=== PATIENT | female | born 1955 | race Caucasian/White ===

== ENCOUNTER 2022-05-23 19:29 | Emergency (ER) | payer BC, OTHER, SELFPAY ==
[2022-05-23 19:30] VITALS: BP 145/79; PULSE 101; RESP 16; TEMP 36.2; O2SAT 95; BMI 30.7
--- NOTE | 2022-05-23 19:33 | RAD_ITS ---
EXAM: XR RIGHT SHOULDER COMPLETE, 2 OR MORE VIEWS CLINICAL INDICATION: FALL TECHNIQUE: Two or more views of the right shoulder. This report was created using Lala report generation technology. COMPARISON: None. FINDINGS: Acute fracture centered at the surgical neck of the right proximal humerus. At least moderate hypertrophic degenerative changes involving the right acromioclavicular joint. Degenerative changes of the spine. Soft tissues swelling about the fracture site. RAD/Shoulder min 2 Views IMPRESSION: Acute fracture centered at the surgical neck of the right proximal humerus. Electronically Signed: Raz Quijano MD at 20:37 EDT ,
--- NOTE | 2022-05-23 21:24 | EDS_ITS ---
HPI History of Present Illness Chief Complaint: Fall Informant: patient Narrative Narrative: 66-year-old female was learning how to walk a large great Todd when a neighbor came out of their house with a smaller dog and the great Todd that pulled her forward and she was unable to get her hand out of the leash and she fell down injuring her right shoulder. She notes bruising to the dorsum of the right hand but no painful or limited range of motion at that location. She notes pain and crunching when she attempts to move the right shoulder. PFSH PFSH Home Medications Cetirizine Hcl [Zyrtec] 10 mg PO DAILY 11/28/16 [History Last Taken Unknown] bupropion HCl 300 mg 24 hr tablet, extended release 300 mg PO DAILY 11/28/16 [History Last Taken Unknown] cyclobenzaprine 10 mg tablet 10 mg PO TID PRN PRN MUSCLE SPASMS 11/28/16 [History Last Taken Unknown] diclofenac sodium 75 mg tablet,delayed release 75 mg PO BIDCM 11/28/16 [History Last Taken Unknown] fluticasone propionate 50 mcg/actuation nasal spray,suspension 1 spray DAILY 11/28/16 [History Last Taken Unknown] hydrochlorothiazide 12.5 mg capsule 12.5 mg PO DAILY 11/28/16 [History Last Taken Unknown] lorazepam 1 mg tablet 1 mg PO BID PRN PRN Anxiety 11/28/16 [History Last Taken Unknown] metformin 500 mg tablet 2,000 mg PO DINNER 11/28/16 [History Last Taken Unknown] montelukast 10 mg tablet 10 mg PO DAILY 11/28/16 [History Last Taken Unknown] pantoprazole 40 mg tablet,delayed release 40 mg PO DAILY 11/28/16 [History Last Taken Unknown] simvastatin 40 mg tablet 40 mg PO QHS 11/28/16 [History Last Taken Unknown] sumatriptan succinate 100 mg tablet (Imitrex) 200 mg PO .X1 PRN PRN MIGRAINES 11/28/16 [History Last Taken Unknown] oxycodone-acetaminophen 5 mg-325 mg tablet 1 tab PO Q6H PRN PRN pain 5 days #20 TABLETS 05/23/22 [Rx Last Taken Unknown] Allergy/AdvReac Type Severity Reaction Status Date / Time lisinopril Allergy COUGH Verified 05/23/22 19:31 losartan Allergy Unknown Verified 05/23/22 19:31 Penicillins Allergy Swelling Verified 05/23/22 19:31 sertraline [From Zoloft] Allergy JITTERY Verified 05/23/22 19:31 Sulfa (Sulfonamide Allergy Anaphylaxis Verified 05/23/22 19:31 Antibiotics) Social History (Updated 05/23/22 @ 21:[address] Sekou Paz, DO) current gender identity: female Smoking Status: Never smoker substance use type: does not use ROS ROS ED Constitutional Constitutional ED: Denies chills or weight loss Eyes Eyes: Denies change in vision or diplopia ENT ENT ED: Denies ear pain, rhinorrhea or sore throat Cardiovascular Cardiovascular: Denies chest pain, orthopnea, palpitations or racing heartbeat Respiratory/Chest Respiratory/Chest: Denies cough, dyspnea or orthopnea Gastrointestinal Gastrointestinal: Denies abdominal pain, diarrhea, nausea or vomiting Genitourinary Genitourinary ED: Denies dysuria, hematuria or urinary frequency Musculoskeletal Musculoskeletal: Reports other Details: See history of present illness ; Denies arthralgias or myalgias Integumentary Denies abscess or rash Neurologic Neurologic: Denies headache(s) or weakness Psychiatric Psychiatric: Denies anxiety, depression, suicidal ideation or suicidal thoughts Endocrine Endocrinology: Denies polydipsia, polyphagia or polyuria Allergic/Immunologic Allergic/Immunologic ED: Denies mouth swelling, tongue swelling or urticaria EXAM Physical Exam Const Vital Signs: 05/23/22 19:30 05/23/22 20:05 Temperature 97.2 F L Temperature Source Temporal Pulse Rate 101 H Respiratory Rate 16 Respiratory Effort Normal Non-Labored Respiratory Depth Normal Respiratory Pattern Normal Blood Pressure 145/79 H Blood Pressure Mean 101 Pulse Ox 95 Oxygen Delivery Method Room Air Room Air Positive well nourished and well developed General Appearance ED: well developed HEENT Reports normocephalic, head/scalp atraumatic and moist mucous membranes Eyes PERRL and EOMs intact bilaterally Neck no lymphadenopathy, supple and no JVD Resp normal respiratory effort and clear to auscultation bilaterally Cardio regular rate, regular rhythm and no murmurs GI normal to inspection, nondistended, normoactive bowel sounds and non-tender Palpation: soft Back/Spine no CVA tenderness and normal ROM Extremity Extremity Narrative: Patient has tenderness to palpation limited range of motion at the right shoulder. Neurovascular she is intact distal. There is some slight ecchymosis without deformity or bony tenderness along the fifth metacarpal of the right hand. No malrotation. General Extremety ED: Negative for edema General Extremity: Negative for edema Neuro oriented x3 and CN's II-XII intact bilaterally Sensorium / Orientation: alert Motor Exam: strength 5/5 throughout Psych mental status grossly normal Mood & Affect: Negative for depressed or tearful Skin no rashes or lesions noted and no wounds MDM MDM MDM Narrative Medical decision making narrative: X-rays of the shoulder obtained which demonstrates a fracture through the surgical neck. Patient will be placed in a sling given pain medication. She is to follow-up with orthopedics. Radiography Diagnostic Testing: Clinical Impression(s) from Imaging Studies Shoulder X-Ray 05/23/22 19:33 IMPRESSION: Acute fracture centered at the surgical neck of the right proximal humerus. Electronically Signed: Raz Quijano MD at 20:37 EDT Reading Location ID and State: [facility] / [place] Tel , Service support , Discharge Plan Triage Chief Complaint: Fall ED Provider: Sekou Paz Dx/Rx/DC Orders Clinical Impression: Closed fracture of proximal end of right humerus Instructions: ED Fracture, Shoulder Prescriptions: New oxycodone-acetaminophen [oxycodone-acetaminophen] 5-325 mg tablet 1 tab PO Q6H PRN PRN (Reason: pain) 5 Days Qty: 20 0RF No Action cyclobenzaprine 10 MG tablet 10 mg PO TID PRN PRN (Reason: MUSCLE SPASMS) metformin 500 MG tablet 2,000 mg PO DINNER simvastatin 40 MG tablet 40 mg PO QHS hydrochlorothiazide 12.5 MG capsule 12.5 mg PO DAILY diclofenac sodium 75 MG tablet 75 mg PO BIDCM montelukast 10 MG tablet 10 mg PO DAILY lorazepam 1 MG tablet 1 mg PO BID PRN PRN (Reason: Anxiety) fluticasone propionate 1 SPRAY spray,suspension 1 spray NASAL DAILY Cetirizine Hcl [Zyrtec] 10 MG tablet 10 mg PO DAILY pantoprazole 40 MG tablet 40 mg PO DAILY bupropion HCl 300 MG tablet extended release 24 hr 300 mg PO DAILY sumatriptan succinate [Imitrex] 100 MG tablet 200 mg PO .X1 PRN PRN (Reason: MIGRAINES) Primary Care Provider: Nitesh Alba Referrals: Robert Cristina DO [STAFF PHYSICIAN] - As soon as possible Nitesh Alba MD [Primary Care Provider] - Activity Restrictions/Additional Instructions: I would hold your tramadol if you are going to be using the Percocet. You can use 1 or the other but not both. Disposition Disposition: Home, Self Care
[2022-05-23] MEDS: oxyCODONE 5 MG Tablet 10 MG PO (21:40)
== END 2022-05-23 21:52 | disposition home or self-care (01) ==
PROVIDERS: Emergency Provider Emergency Medicine; PCP Family Medicine; Visit Provider Emergency Medicine
DX: S42.201A Unspecified fracture of upper end of right humerus, initial encounter for closed fracture (principal); W19.XXXA Unspecified fall, initial encounter
CPT/HCPCS: 73030; 99283

== ENCOUNTER 2022-08-23 15:00 | Outpatient (RCR) | payer MEDICARE, OTHER, SELFPAY ==
--- NOTE | 2022-06-21 11:52 | HP.PTEVAL_ITS ---
Patient's Visit Information VIGNESH JIMENES is a 67 year old F referred to Physical Therapy by ALLAN HAYNES with a diagnosis of 3 part fracture r humeral neck.. Date of Evaluation: 06/21/22 Physical Therapist: MULU BuschT, OCS, CSCS - Visit Plan Frequency: 3x /Week Duration: 4-6 Weeks Plan: 3x/week for 6 weeks for... 1. start MH, STM to R shoulder and upper arm and PROM R shoulder(script limited to PROM right now. for first two weeks.). when allowed by doctor(2 weeks...8/5?) progress to AAROM, AROM and strengthening/RTF. - Subjective I fractured ball of my r humerus/shoulder on May 23 from walking a great rajinder mastiff pulling on her arm and making her fall.. Put in a sling at ER for 6-8 weeks and sent to surgeon. Has FM and that seems flared up. Ortho took x rays and says she is healing but only part way. Needs to start therapy to get it moving. Could not use hand until a week ago. She asked patient to use hand and do pendulum. Pain is 10 or 11 at times, worse upon waking. Sleeps in recliner adn it is challenging but getting some FM pain all over and R shoulder and hand and neck. At rest is 3/10, one day was 0/10. Employed but is off b/c of shoulder. 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 Hobbies: helps with sister with brain tumor. ADLS: Dress self but gets stuck in dresses. Bathroom and shower alone, lives alone. - Pain R shoulder Pain Intensity (Out of 10): 3 Pain Intensity Range: 0, 10 - Objective Walks into PT I and trasnfers I, Has sling loosely on R shoulder and dons and d offs I. Cervical aROM WFL. R elbow AROM ext -20 degrees and flexion is full, both are slow, some bruising above R elbow still apparent. wrist adn hand AROM B WFL, some pain with elevating R thumb. L shoulder AROM WFL to 135 degrees, stiff. R shoulder PROM 110 flexion, 90 abduction, 30 ext rotation and 30 IR, all slow and limited by pain,. AROM not taken today due to limitations on script. Strength R shoulder not tested today, L shoulder 4-/5, B elbow 4-/5, wrist 4/5 B. AROM ext rotation R shoulder challenging and resisted at about 3/5 vs 4 on L. IR 3+ R adn 4 L. - Balance/Special Test Scores Quick DASH Score: 84.0900 - Goals Goal 1:: ST: pt have PROM R shouldr 135 flexiona dn abd nad 60 ext rotation and 60 IR in two weeks Goal Time Frame: 2 Weeks Goal 2:: LT : PT reach OH to do hair without pain or hesitation Goal Time Frame: 4-6 Weeks Goal 3:: Pt sleep without waking at night due to pain Goal Time Frame: 4-6 Weeks Goal 4:: Have plan to return to work Goal Time Frame: 4-6 Weeks Goal 5:: Pt feel 75% better in function of R UE Goal Time Frame: 4-6 Weeks - Rehabilitation Potential Physical Therapy Diagnosis: Fracture R shoulder limiting ROM and function Rehabilitation Potential: Fair - Anticipated Interventions Patient/Client Instruction: Educate patient on: Condition, Plan of Care For the Purpose of:: To decrease pain, To increase ROM, To improve muscle performance and motor function, To increase tolerance to activity/condition/position Therapeutic Exercise to Include: Postural training, Flexibilty training, Passive ROM For the Purpose of:: To increase ROM, To improve nutrient delivery to tissue, To improve muscle performance and motor function, To increase tolerance to activity/condition/position Manual Therapy Techniques to Include: Passive ROM, Soft tissue mobilization For the Purpose of:: To increase ROM Thermo therapy (hot pack): Yes For the Purpose of:: To increase ROM Thank you for the opportunity to evaluate your patient. For Medicare and Medicare HMO plans, please review the plan of care and approve it. It will need to be FAXED BACK to us at [phone] for Medicare purposes. For Medicare only, by signing this I certify the plan of care. Please let me know if there are questions or concerns regarding this plan of care. Physician Signature: Date:
--- NOTE | 2022-07-17 15:52 | HP.PTREVAL ---
ALLAN HAYNES, It has been my pleasure to treat VIGNESH JIMENES over the last 9 visits for 3 part fracture r humeral neck.. Please see the progress note below for an update on the physical therapy plan of care! Subjective: 3/10 pain much of tie under R shoulder blade and down arm to hand. It is constant. Takes tramadol as needed. Pain is fairly constant and slowly improving overall. Motion is much better and good. Can reach behind head and wash back. Strength is still an issue. Had a hard time picking up big plastic tubs and that made pain worse. Dresses self most of time. Sleeping is only interrupted sometimes due to pain. hobbies are slowed as she has not been able to do a lot of laundry and cooking. It is hard to lift those heavier items. Can bring groceries in but has to be very careful. To doctor in a month. Needs to lift big garbage cans when she returns to work and needs to be stronger. Objective/Function: 136 flexion aROm R, 135 abduction, 65 ext rotation and PSIS IR at first adn L5 after stretching. Strength is 4- R ir, er, abd, flexion and weak vs L side. Starting to use it for more everyday activities. improving Quickdash score. Appropriate for cotninuation per POC with new goals and fair prognosis. Plan Plan: continue 2x/week for 4 weeks for progression of strengthening and end ROM exercises to tolerance. Balance/Gait/Functional tests - Balance/Special Test Scores Quick DASH Score: 47.7250 Goals Goal 1:: ST: pt have PROM R shouldr 135 flexiona dn abd nad 60 ext rotation and 60 IR in two weeks Goal Time Frame: 2 Weeks Goal Progress: Goal Met Goal 2:: LT : PT reach OH to do hair without pain or hesitation Goal Time Frame: 4-6 Weeks Goal Progress: hesitant but able, approp Goal 3:: Pt sleep without waking at night due to pain Goal Time Frame: 4-6 Weeks Goal Progress: Progressing, approp Goal 4:: Have plan to return to work Goal Time Frame: 4-6 Weeks Goal Progress: Progressing Goal 5:: Pt feel 75% better in function of R UE Goal Time Frame: 4-6 Weeks Goal Progress: Goal Met Goal 6:: Pt feel 95% better overall to facilitate return to work and quick dash 24 or better Goal Time Frame: 4-6 Weeks Goal Progress: NEW GOAL Anticipated Interventions Patient/Client Instruction: Educate patient on: Condition, Plan of Care For the Purpose of:: To decrease pain, To increase ROM, To improve muscle performance and motor function, To increase tolerance to activity/condition/position Therapeutic Exercise to Include: Postural training, Flexibilty training, Passive ROM For the Purpose of:: To increase ROM, To improve nutrient delivery to tissue, To improve muscle performance and motor function, To increase tolerance to activity/condition/position Manual Therapy Techniques to Include: Passive ROM, Soft tissue mobilization For the Purpose of:: To increase ROM Thermo therapy (hot pack): Yes For the Purpose of:: To increase ROM Please do not hesitate to contact me at [phone] by phone or if you have questions or concerns regarding this new plan of care! Sincerely, Bipin Núñez, DPT, OCS, CSCS
--- NOTE | 2022-08-09 15:55 | HP.PTREVAL ---
ALLAN HAYNES, It has been my pleasure to treat VIGNESH JIMENES over the last 13 visits for 3 part fracture r humeral neck.. Please see the progress note below for an update on the physical therapy plan of care! Subjective: Still feels weak. Pain is better. Been doing alot of reaching and practical work. Pain is minimal but did have poison amelia earlier in the week. Back doing better. Overall still avoids heavy cleaning. Avoids lifting big boxes. A gallon of milk still feels heavy. 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 sleeping much better. Objective/Function: AROM: 135 flexion and abduction, 55 ext rot, L5 IR. 4- r shoulder strength and 4/5 L. R fatigues quickly with AROM with resistance elevation. Overall doing very well. Wishes to progress to gym based program and be d/cd. Plan Plan: 2 visits to teach gym program for UE with list and then likely d/c Balance/Gait/Functional tests - Balance/Special Test Scores Quick DASH Score: 20.4525 Goals Goal 1:: ST: pt have PROM R shouldr 135 flexiona dn abd nad 60 ext rotation and 60 IR in two weeks Goal Time Frame: 2 Weeks Goal Progress: Goal Met Goal 2:: LT : PT reach OH to do hair without pain or hesitation Goal Time Frame: 4-6 Weeks Goal Progress: Goal Met Goal 3:: Pt sleep without waking at night due to pain Goal Time Frame: 4-6 Weeks Goal Progress: Progressing Goal 4:: Have plan to return to work Goal Time Frame: 4-6 Weeks Goal Progress: Progressing Goal 5:: Pt feel 75% better in function of R UE Goal Time Frame: 4-6 Weeks Goal Progress: Goal Met Goal 6:: Pt feel 95% better overall to facilitate return to work and quick dash 24 or better Goal Time Frame: 4-6 Weeks Goal Progress: Progressing Anticipated Interventions Patient/Client Instruction: Educate patient on: Condition, Plan of Care For the Purpose of:: To decrease pain, To increase ROM, To improve muscle performance and motor function, To increase tolerance to activity/condition/position Therapeutic Exercise to Include: Postural training, Flexibilty training, Passive ROM For the Purpose of:: To increase ROM, To improve nutrient delivery to tissue, To improve muscle performance and motor function, To increase tolerance to activity/condition/position Manual Therapy Techniques to Include: Passive ROM, Soft tissue mobilization For the Purpose of:: To increase ROM Thermo therapy (hot pack): Yes For the Purpose of:: To increase ROM Please do not hesitate to contact me at [phone] by phone or if you have questions or concerns regarding this new plan of care! Sincerely, Bipin Núñez, MULUT, OCS, CSCS
--- NOTE | 2022-08-23 15:27 | HP.PTDCSUM ---
It has been my pleasure to treat VIGNESH JIMENES referred by ALLAN HAYNES, with the diagnosis of 3 part fracture r humeral neck. for a total of 15 visit(s). Discharge Date: 08/23/22 Please see the following information for a summary of their discharge status. Subjective: Feeling really good. Steroids for poison amelia helped. Pretty busy and may be ready to be done. Not much pain lately. Lifted table the other day without thinking about arm or paying for it. Will return to work 09/15. Cortisone from poison amelia really helped and she can now sleep and feels painfree. R shoulder Pain Intensity (Out of 10): 0 % Improvement: 95 Objective/Function: 135 flexion, 50 ext rotation, L5 IR. Strength elevation is 4-, er 4- and IR 4. biceps and triceps 4/5. Very functional Goal 1:: ST: pt have PROM R shouldr 135 flexiona dn abd nad 60 ext rotation and 60 IR in two weeks Goal Progress: Goal Met Goal 2:: LT : PT reach OH to do hair without pain or hesitation Goal Progress: Goal Met Goal 3:: Pt sleep without waking at night due to pain Goal Progress: Goal Met Goal 4:: Have plan to return to work Goal Progress: 09/15 Goal 5:: Pt feel 75% better in function of R UE Goal Progress: Goal Met Goal 6:: Pt feel 95% better overall to facilitate return to work and quick dash 24 or better Goal Progress: Goal Met Plan: d/c If there are questions or concerns regarding this patient's physical therapy, please feel free to call me at [phone]. Thank you for the referral of this patient. Sincerely, Bipin Núñez, DPT, OCS, CSCS Balance/Gait/Functional tests - Balance/Special Test Scores Quick DASH Score: 6.8175
== END 2022-08-23 19:00 | disposition home or self-care (01) ==
LOC: PT 15:00
PROVIDERS: PCP Family Medicine
DX: S42.231D 3-part fracture of surgical neck of right humerus, subsequent encounter for fracture with routine healing (principal); X58.XXXD Exposure to other specified factors, subsequent encounter
CPT/HCPCS: 97110; 97140; 97161; 97164

== ENCOUNTER 2023-06-16 18:25 | Emergency (ER) | payer MEDICARE, SELFPAY ==
[2023-06-16 18:26] VITALS: BP 134/89; PULSE 88; RESP 18; TEMP 36.6; O2SAT 98
[2023-06-16 20:42] VITALS: BMI 31.6
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
[2023-06-16] MEDS: Lidocaine 5% Patch 1 PATCH TOPICAL (22:01)
--- NOTE | 2023-06-16 22:05 | RAD_ITS ---
INDICATION: Fall, lower back pain EXAMINATION/TECHNIQUE: X-RAY - XR Spine Lumbar 2 or 3 Views COMPARISON: None. FINDINGS: VERTEBRAE: Chronic appearing anterior vertebral body wedge compression deformity at L1 resulting in up to 50 present loss of height anteriorly. Mild grade 1 anterolisthesis L4 over L5. Preserved lumbar lordosis. Multilevel degenerative facet arthropathy. DISCS: Disc spaces are maintained. INCLUDED ABDOMEN: Included bowel gas pattern is non-obstructive. RAD/Lumbar Spine 2 or 3 Views IMPRESSION: Chronic appearing L1 vertebral body compression fracture. Multilevel lumbar facet arthropathy with chronic appearing grade 1 anterolisthesis L4 over L5. Electronically Signed: Kyaw Bear MD at 22:36 EDT ,
[2023-06-16 23:22] VITALS: BP 153/83; PULSE 86; RESP 18; O2SAT 96
== END 2023-06-16 23:29 | disposition home or self-care (01) ==
PROVIDERS: Emergency Provider Student in an Organized Health Care Education/Training Program; PCP Family Medicine; Visit Provider Student in an Organized Health Care Education/Training Program
DX: S30.0XXA Contusion of lower back and pelvis, initial encounter (principal); M48.56XA Collapsed vertebra, not elsewhere classified, lumbar region, initial encounter for fracture; E11.9 Type 2 diabetes mellitus without complications; I10 Essential (primary) hypertension; Z79.84 Long term (current) use of oral hypoglycemic drugs; Z79.899 Other long term (current) drug therapy; W19.XXXA Unspecified fall, initial encounter
CPT/HCPCS: 72100; 99281; 99282

== ENCOUNTER → 2023-08-01 | Outpatient (CLI) | payer MEDICARE, SELFPAY ==
--- NOTE | 2023-08-01 11:14 | MRI_ITS ---
STUDY: MRI LUMBAR SPINE WITHOUT CONTRAST REASON FOR EXAM: Female, 68 years old patient with wedge compression fracture of L1 and spondylolisthesis. TECHNIQUE: Standardized fat and water weighted pulse sequences were obtained in the sagittal and axial planes. COMPARISON: Prior comparable comparison studies are not available for review at this time. FINDINGS: T12-L1: There is mild annular disk bulge and osteophyte complex. There is mild degenerative arthropathy of the facet joints. Bilateral neuroforamina are narrowed. There is mild acquired central canal stenosis secondary to posterior displacement of the posterior margin of L1 secondary to the fracture. There is severe wedge-shaped compression fracture of L1 with at least 90% maximum compression. Normal lumbar lordosis. There is no substantial scoliosis. Normal conus medullaris that terminates at the L1 level. L1-2: There is mild annular disk bulge and osteophyte complex. There is mild degenerative arthropathy of the facet joints. Bilateral neuroforamina are severely narrowed without MR evidence for nerve impingement. There is no appreciable acquired central canal stenosis. L2-3: There is mild annular disk bulge and osteophyte complex. There is mild degenerative arthropathy of the facet joints. Bilateral neuroforamina are narrowed without MR evidence for nerve impingement. There is no appreciable acquired central canal stenosis. L3-4: There is mild annular disk bulge and osteophyte complex. There is mild degenerative arthropathy of the facet joints. Bilateral neuroforamina are narrowed without MR evidence for nerve impingement. There is mild acquired central canal stenosis. L4-5: There is mild annular disk bulge and osteophyte complex. There is severe degenerative arthropathy of the facet joints. Bilateral neuroforamina are narrowed without MR evidence for nerve impingement. There is thickening of the ligamentum flavum. There is mild acquired central canal stenosis. L5-S1: There is mild annular disk bulge and osteophyte complex. There is moderately severe degenerative arthropathy of the facet joints. Bilateral neuroforamina are narrowed without MR evidence for nerve impingement. There is no appreciable acquired central canal stenosis. Normal visualized sacral ala. Normal visualized paraspinous soft tissue structures. MRI/Spine Lumbar (Routine) IMPRESSION: 1. Severe acute wedge-shaped compression fracture of L1. 2. Multilevel degenerative changes of lumbar spine with neural foraminal narrowing and central canal stenosis, as described. Electronically Signed: Christine Buckner MD at 21:48 EDT ,
== END | disposition home or self-care (01) ==
PROVIDERS: PCP Family Medicine; Referring Provider Orthopaedic Surgery; Visit Provider Orthopaedic Surgery
DX: M43.16 Spondylolisthesis, lumbar region (principal); S32.010A Wedge compression fracture of first lumbar vertebra, initial encounter for closed fracture
CPT/HCPCS: 72148

== ENCOUNTER → 2023-10-01 | Outpatient (CLI) | payer MEDICARE, SELFPAY ==
--- NOTE | 2023-10-01 | BON_PTH ---
PATIENT: VIGNESH JIMENES LOC: [facility] U#:[id number] AGE/SX: 68/F ROOM: RE10/01/[address]: Dr. Siddhartha Villalobos DO : 1955 BED: DIS: 10/01/2023 SPEC #: [id number] RECD: 10/02/23 10:12 STATUS: SHADY RENadeen #: [id number] ERICKA: 10/01/23 00:[address]: Siddhartha Villalobos DEPT: SURGICAL PATHOLOGY RECD BY: Bladimir Chandra ENTERED: 10/02/23 10:13 SP TYPE: Bone OTHR DR: Dr. Nitesh Alba MD [facility] Tissues: Vertebra, NOS Procedures: Decalcification bone/plaque Surgery Specimen Level V HEADER OPERATION: L1 kyphoplasty PRE-OP DIAGNOSIS: Wedge compression fracture of L1 vertebra TISSUE SUBMITTED: L1 vertebral body bone MICROSCOPIC DIAGNOSIS L1 vertebral body bone, core biopsy: A piece of bone with reactive changes and callus formation, negative for malignancy. NANCY:yosef 10/03/2023 MICROSCOPIC DESCRIPTION Slides are reviewed. GROSS DESCRIPTION Received in fixative is one container labeled with the patient's name and designated L1 vertebral body bone. The specimen consists of an elongated piece of hylton bone measuring 1.5 cm in length and 0.2 cm in diameter. The entire specimen is submitted in one cassette after decalcification. / NANCY:yosef 10/02/2023 TC:5 CPT: 31161, 64424
== END | disposition home or self-care (01) ==
LOC: LABSPEC 16:04
PROVIDERS: PCP Family Medicine; Referring Provider Orthopaedic Surgery; Visit Provider Orthopaedic Surgery
DX: S32.010A Wedge compression fracture of first lumbar vertebra, initial encounter for closed fracture (principal)
CPT/HCPCS: 88305; 88307; 88311